=== PATIENT | male | born 1960 | race Caucasian/White ===

== ENCOUNTER 2016-05-19 10:02 | Emergency (ER) | payer MEDICAID ==
[~2016-05-19] VITALS: Ht 180.3 cm; Wt 76.2 kg
[~2016-05-19 10:02] MED LIST: AZITHROMYCIN250 MG ORAL; BACITRACIN ZIN1 EACH TOPIC; NKM; Oxycodone/Acetaminophen 5-325 ORAL ONE; UNOBMED
[2016-05-19] MEDS ORDERED: TYLENOL325 MG ORAL (11:57)
[2016-05-19 12:00] VITALS: BP 152/84
[2016-05-19 12:08] VITALS: BP 185/104
--- NOTE | 2016-05-21 07:11 | Emergency Room Report ---
History of Present Illness General Chief Complaint: Back Injury Source: Patient, EMS Present Illness HPI 55YOM BIBEMS with c/o left back/rib pain s/p fall while painting at home. Denies falling from height or off ladder/stool. EMS confirms no ladders/stools in house. Endorses doing meth yesterday. EMS states "+AOB" today but patient denies. Patient denies other PMHx. Denies hitting head, other injury. Allergies: Coded Allergies: No Known Allergies (Unverified , 04/03/13) Patient History Past Medical History: none Past Surgical History: none Pertinent Family History: none Social History: Denies: alcohol use, drug use, smoking Immunizations: UTD Reviewed Nursing Documentation: PMH: Agreed, PSxH: Agreed Nursing Documentation-PMH Hx Cardiac Problems: No - VENOUS STASIS Hx Hypertension: Yes Hx COPD: No - HIATAL HERNIA Review of Systems All Other Systems: negative except mentioned in HPI Physical Exam Vital Signs Date Time Temp Pulse Resp B/P Pulse Ox O2 Delivery O2 Flow Rate FiO2 05/19/16 09:51 97.5 78 18 152/84 99 Room Air Sp02 EP Interpretation: reviewed, abnormal General Appearance: normal inspection, well appearing, no apparent distress, alert, GCS 15, non-toxic Head: normocephalic, atraumatic Eyes: bilateral eye EOMI, bilateral eye PERRL ENT: normal ENT inspection, hearing grossly normal, normal voice Neck: normal inspection, full range of motion, supple, no bony tend Respiratory: normal inspection, lungs clear, normal breath sounds, no respiratory distress, no retraction, no wheezing Cardiovascular #1: regular rate, rhythm, no edema Gastrointestinal: normal inspection, normal bowel sounds, non tender, soft, no guarding, no hernia Genitourinary: no CVA tenderness Musculoskeletal: normal inspection, back normal, normal range of motion, Nuzhat' s Sign negative, other - Mild ttp to left posterior ribs. 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, motor strength/tone normal, speech normal Psychiatric: normal inspection Skin: normal inspection Lymphatic: normal inspection Medical Decision Making Diagnostic Impression: Primary Impression: Contusion of rib on left side Qualified Codes: S20.212A - Contusion of left front wall of thorax, initial encounter ER Course Elevated BP likely d/t pain Analgesia provided CXR and rib series negative for acute PTX or rib fx Likely contusion DC with analgesia and PMD followup Last Vital Signs Date Time Temp Pulse Resp B/P Pulse Ox O2 Delivery O2 Flow Rate FiO2 05/19/16 12:08 97.6 12 185/104 92 Room Air 05/19/16 09:51 78 Status: improved Disposition: HOME, SELF-CARE Condition: Improved Scripts Acetaminophen (Tylenol) 325 Mg Tablet 650 MG ORAL Q6H Y for back pain, #30 TAB 0 Refills Prov: DEON MOHAMUD M.D. 05/19/16 Patient Instructions: Rib Contusion Additional Instructions: - Your xrays do not show fracture - Take tylenol as needed for pain - Follow up with your doctor DEON MOHAMUD M.D. May 21, 2016 07:11
== END 2016-05-19 11:08 | disposition home or self-care (01) ==
LOC: EDBD 10:02 → EMR 10:32
DX: S20.212A Contusion of left front wall of thorax, initial encounter (principal); I10 Essential (primary) hypertension; F15.10 Other stimulant abuse, uncomplicated; W11.XXXA Fall on and from ladder, initial encounter; Y92.009 Unspecified place in unspecified non-institutional (private) residence as the place of occurrence of the external cause; Y99.8 Other external cause status
CPT/HCPCS: 99283